=== PATIENT | male | born 1955 | race Caucasian/White ===

== ENCOUNTER 2019-07-02 10:06 | Day surgery (SDC) | payer MEDICARE, OTHER ==
[2019-07-02] MEDS ORDERED: GLUCAGON 1 MG INJ (10:59)
[2019-07-02] MEDS ORDERED: FENTAnyl 50 MCG/ML VIAL (11:07)
[2019-07-02] MEDS ORDERED: PROPOFOL 40 ML (11:07)
[2019-07-02] MEDS ORDERED: LIDOCAINE 2% (SDV) 5 ML INJ (11:07)
== END 2019-07-02 15:06 | disposition home or self-care (01) ==
LOC: GIL 10:06
DX: D12.0 Benign neoplasm of cecum (principal); K57.30 Diverticulosis of large intestine without perforation or abscess without bleeding; Z85.46 Personal history of malignant neoplasm of prostate
CPT/HCPCS: 45380; 88305